=== PATIENT | male | born 1985 | race Caucasian/White ===

== ENCOUNTER → 2024-04-17 01:03 | Outpatient (CLI) | payer OTHER, SELFPAY ==
--- NOTE | 2024-04-17 07:30 | DI.US_ITS ---
APPROVED REPORT EXAM: Comprehensive 2D, Doppler, and color-flow Echocardiogram Patient Location: Out-Patient Biosecurity Officer: Gabbie Weaver RDCS ([place]) Indications: Pericardial Effusion Other Information Study Quality: Fair. Technically limited study due to body habitus. Conclusion Normal left ventricular wall thickness and chamber size. Ejection fraction is 55%. There are no seg mental wall motion abnormalities Normal right ventricular size, grossly normal function Both atria are normal in size There is no structural or hemodynamically significant valvular disease Trivial pericardial effusion Wall motion Left Ventricle The left ventricle is normal size. Left ventricular systolic function is mildly decreased. The left ventricular systolic function is normal. The left ventricular ejection fraction is within the normal range. There is normal left ventricular wall thickness. There are no segmental wall motion abnormali ties There is no ventricular septal defect visualized. LVEF is 55%. Right Ventricle The right ventricle is normal size. Atria The left atrium size is normal. The right atrium size is normal. The interatrial septum is intact wit h no evidence for an atrial septal defect. Aortic Valve The aortic valve is normal in structure. Aortic valve is trileaflet. There is no aortic valvular sten osis. No aortic regurgitation is present. Mitral Valve The mitral valve is normal in structure. No evidence of mitral valve stenosis. Trace mitral regurgita tion. Tricuspid Valve The tricuspid valve is normal in structure. There is no tricuspid valve stenosis. Trace tricuspid reg urgitation. Unable to assess PA pressure. Pulmonic Valve The pulmonary valve is normal in structure. There is no pulmonic valvular stenosis. Trace pulmonic re gurgitation. Great Vessels The aortic root is normal in size. The ascending aorta is normal in size. Aortic arch is not well vis ualized. The IVC collapses <50% with inspiration. Pericardium Trivial pericardial effusion 2D Dimensions IVSD d PLAX 1.00 cm M: 0.6-1.2 Ao Root d 2.68 cm M: 3.1 - 3.7 LVPW d PLAX 1.02 cm M: 0.6 - 1.2 Ao Asc Diam d 2.97 cm M: 2.6 - 3.4 LVID d PLAX 4.80 cm M: 4.2 - 5.8 LVDs 3.55 cm M: 2.5 - 4.0 LV EF Teichholz 50.3 % FS 25.59 % LV EDV (Teich) 105.9 mL LV ESV (Teich) 52.6 mL M-Mode TAPSE 2.28 cm (M/F) >1.7 Auto EF LV EDV A4C 128.1 mL LV EDV A2C 82.0 mL LV EDV BP 102.4 mL LV ESV A4C 65.0 mL LV ESV A2C 42.1 mL LV ESV BP 52.2 mL LVEF(%) A4C 49.3 % LVEF(%) A2C 48.7 % LVEF(%) BP 49.0 % LV SV A4C 63.1 ml LV SV A2C 39.9 ml LV SV BP 50.1 ml LV CO A4C 4.9 L/min LV CO A2C 2.9 L/min LV CO BP 3.9 L/min HR A4C 77.73 BPM HR A2C 72.44 BPM LV EDV Index (BP) LA Volume LA Length A4C 5.4 cm LA Length A2C 5.1 cm LA Area A4C s 18.84 cm2 LA Area A2C s 13.63 cm2 LA Vol A4C A-L 55.74 mL LA Vol A2C A-L 30.82 mL LA Vol Biplane A-L 42.6 mL LA Vol/BSA A4C A-L LA Vol/BSA A2C A-L LA Vol/BSA BP A-L 19.7 mL/m2 LA Vol A4C MOD 51.2 mL LA Vol A2C MOD 29.1 mL LA Vol BP MOD 39.3 mL RA Volume RA Area A4C 13.5 cm2 RA ESV A4C (A-L) 33.0mL RA Vol/BSA A4C A-L RA Length A4C 4.7 cm RA ESV A4C (MOD) 31.3mL LV Diastology MV E' medial 0.077 (>0.07 m/s) MV E Vmax 0.79 (0.4-1.3 m/s) MV E/E' MED 10.31 (<14) MV A Vmax 0.80 (0.4-1.3 m/s) MV E' lateral 0.138 (>0.1 m/s) E/A Ratio 1.0 MV E/E' LAT 5.72 (<14) MV E' Average 0.108 m/s MV E/E'(average) 7.36 Aortic Valve AoV Vmax 1.44 m/s LVOT Vmax 1.24 m/s AoV Peak Grad 8.3 mmHg LVOT Peak Grad 6.1 mmHg AoV Area (Vmax) 2.35 cm2 LVOT VTI 0.281 m AoV VTI 0.334 m LVOT Mean Grad 3.8 mmHg AoV Mean Rambo. 1.01 m/s LVOT SV 76.95 mL AoV Mean Grad 4.6 mmHg LVOT Diam s 1.85 cm AoV Area (VTI) 2.31 cm2 AV Regurg Peak Gr. 8.32 mmHg Velocity Ratio 0.86 Mitral Valve MV DT 187 (160-240 msec) MV Vmax TIPS 0.91 m/s MV Mean Grad 1.4 (<2mmHg) MV VTI 0.312 m Pulmonary Valve PV Vmax 1.37 (0.5-1.5 m/s) RVOT Vmax 0.77 m/s PV Peak Grad 7.6 mmHg RVOT Peak Gr. 2.4 mmHg PV Mean Rambo 0.90 m/s RVOT VTI 0.173 m PV Mean Grad 3.8 mmHg RVOT Mean Gr. 1.4 mmHg Tricuspid Valve RA Pressure 8.00 mmHg TV S' 0.13 m/s
== END ==
PROVIDERS: PCP Physician Assistant; Visit Provider Family Medicine
DX: R91.8 Other nonspecific abnormal finding of lung field (principal); I31.39 Other pericardial effusion (noninflammatory)
CPT/HCPCS: 93306

== ENCOUNTER 2024-10-25 00:15 | Outpatient (CLI) | payer OTHER, SELFPAY ==
--- NOTE | 2024-10-25 | DI.US_ITS ---
APPROVED REPORT EXAM: Comprehensive 2D, Doppler, and color-flow Echocardiogram Patient Location: Out-Patient Trucking Supervisor: Juno Tesfaye RDCS ([place]) Indications: Trace pericardial effusion, remote history of hodgkins lymphoma Conclusion Normal left ventricular wall thickness and chamber size. Ejection fraction is 55%. Wall motion is n ormal Normal right ventricular size and function Both atria are normal in size There is no structural or hemodynamically significant valvular disease Small circumferential pericardial effusion without evidence of tamponade Wall motion Left Ventricle The left ventricle is normal size. The left ventricular systolic function is normal. The left ventric ular ejection fraction is within the normal range. There is normal left ventricular wall thickness. T here is normal LV segmental wall motion. There is no ventricular septal defect visualized. LVEF is 55 %. Right Ventricle The right ventricle is normal size. The right ventricular systolic function is normal. Atria The left atrium size is normal. The right atrium size is normal. The interatrial septum is intact wit h no evidence for an atrial septal defect. Aortic Valve The aortic valve is normal in structure. Aortic valve is trileaflet. There is no aortic valvular sten osis. No aortic regurgitation is present. Mitral Valve The mitral valve is normal in structure. No evidence of mitral valve stenosis. Trace to mild mitral r egurgitation. Tricuspid Valve The tricuspid valve is normal in structure. There is no tricuspid valve stenosis. Trace tricuspid reg urgitation. Unable to assess PA pressure. Pulmonic Valve The pulmonary valve is normal in structure. There is no pulmonic valvular stenosis. Trace to mild pul niko regurgitation. Great Vessels The aortic root is normal in size. The ascending aorta is normal in size. Aortic arch is normal in ca liber. IVC is normal in size and collapses >50% with inspiration. Pericardium Small circumferential pericardial effusion. 2D Dimensions IVSD d PLAX 0.90 cm M: 0.6-1.2 Ao Root d 2.62 cm M: 3.1 - 3.7 LVPW d PLAX 0.94 cm M: 0.6 - 1.2 Ao Asc Diam d 2.81 cm M: 2.6 - 3.4 LVID d PLAX 5.00 cm M: 4.2 - 5.8 LVDs 3.57 cm M: 2.5 - 4.0 LV EF Teichholz 54.8 % FS 28.53 % LV EDV (Teich) 118.4 mL LV ESV (Teich) 53.5 mL Stroke Vol Index (Teich) 29.88 M-Mode TAPSE 2.82 cm (M/F) >1.7 Auto EF LV EDV A4C 155.7 mL LV EDV A2C 136.8 mL LV EDV BP 144.0 mL LV ESV A4C 70.2 mL LV ESV A2C 61.1 mL LV ESV BP 65.3 mL LVEF(%) A4C 54.9 % LVEF(%) A2C 55.4 % LVEF(%) BP 54.7 % LV SV A4C 85.5 ml LV SV A2C 75.7 ml LV SV BP 78.7 ml LV CO A4C 5.5 L/min LV CO A2C 5.9 L/min LV CO BP 5.7 L/min HR A4C 64.18 BPM HR A2C 78.44 BPM LV EDV Index (BP) LA Volume LA Length A4C 5.2 cm LA Length A2C 3.9 cm LA Area A4C s 14.46 cm2 LA Area A2C s 14.71 cm2 LA Vol A4C A-L 34.29 mL LA Vol A2C A-L 46.76 mL LA Vol Biplane A-L 46.0 mL LA Vol/BSA A4C A-L LA Vol/BSA A2C A-L LA Vol/BSA BP A-L 21.2 mL/m2 LA Vol A4C MOD 33.0 mL LA Vol A2C MOD 39.3 mL LA Vol BP MOD 40.7 mL RA Volume RA Area A4C 11.9 cm2 RA ESV A4C (A-L) 34.1mL RA Vol/BSA A4C A-L RA Length A4C 3.5 cm RA ESV A4C (MOD) 30.3mL LV Diastology MV E' medial 0.097 (>0.07 m/s) MV E Vmax 0.69 (0.4-1.3 m/s) MV E/E' MED 7.10 (<14) MV A Vmax 0.70 (0.4-1.3 m/s) MV E' lateral 0.125 (>0.1 m/s) E/A Ratio 1.0 MV E/E' LAT 5.56 (<14) MV E' Average 0.111 m/s MV E/E'(average) 6.24 Aortic Valve AoV Vmax 1.28 m/s LVOT Vmax 1.21 m/s AoV Peak Grad 6.5 mmHg LVOT Peak Grad 5.9 mmHg AoV Area (Vmax) 2.95 cm2 LVOT VTI 0.270 m AoV VTI 0.262 m LVOT Mean Grad 3.0 mmHg AoV Mean Rambo. 0.85 m/s LVOT SV 83.86 mL AoV Mean Grad 3.4 mmHg LVOT Diam s 1.95 cm AoV Area (VTI) 3.21 cm2 AV Regurg Peak Gr. 6.52 mmHg Velocity Ratio 0.95 Mitral Valve MV DT 196 (160-240 msec) MV Vmax TIPS 0.75 m/s MV Mean Grad 1.2 (<2mmHg) MV VTI 0.219 m Pulmonary Valve PV Vmax 1.29 (0.5-1.5 m/s) RVOT Vmax 0.82 m/s PV Peak Grad 6.6 mmHg RVOT Peak Gr. 2.7 mmHg PV Mean Rambo 0.93 m/s RVOT VTI 0.156 m PV Mean Grad 3.8 mmHg RVOT Mean Gr. 1.6 mmHg
== END 2024-10-25 00:35 ==
LOC: DI 00:15
PROVIDERS: PCP Physician Assistant; Visit Provider Internal Medicine Cardiovascular Disease
DX: I31.39 Other pericardial effusion (noninflammatory) (principal)
CPT/HCPCS: 93306